=== PATIENT | female | born 1940 | race Caucasian/White ===

== ENCOUNTER 2018-04-22 16:36 | Emergency (ER) | payer MEDICARE, OTHER, SELFPAY ==
[~2018-04-22] VITALS: Ht 154.9 cm; Wt 52.0 kg
[2018-04-22] MEDS ORDERED: RIVA15TA PO (16:56)
[2018-04-22] MEDS ORDERED: CARDIA PO (16:56)
[2018-04-22] MEDS ORDERED: DILTIAZEM 5 MG/ML, 5ML IVPush ONE (17:00)
--- NOTE | 2018-04-22 17:03 | NUR ---
CYNTHIA RN: PT ARRIVES TO ED FROM CODE 250 IN ED PARKING LOT, AFTER PT HAD A WITNESSED FALL. PT HIT HER HEAD AND HAS A LACERATION ON RIGHT SIDE OF FOREHEAD AND HAS A BLOODY NOSE WITH CREPITUS FELT TO THE NOSE. PT DOES NOT HAVE ANY VISIBLE HEMATOMAS AT THIS TIME. PT IS ON BLOOD THINNERS (XARELTO). PT REPORTS SHE DID NOT HAVE LOC. PT IS A/O X4. PTS NEURO IS INTACT AND SENSATION WELL IN LOWER EXTREMITIES. PT CONNECTED TO ALL MONITOS AND PT IN AFIB AT THIS TIME. NOTIFIED. PT TO HAVE SCANS AT THIS TIME. AWAITING FURHTER ORDERS. REPORT TO LACY SUMNER RN.
--- NOTE | 2018-04-22 17:15 | NUR ---
CYNTHIA RN: PIV PLACED IN PT.
--- NOTE | 2018-04-22 17:17 | NUR ---
RECEIVED REPORT FROM YOUSUF FISHER, ASSUMING CARE OF PT AT THIS TIME. PT CURRENTLY BEING TAKEN TO CT. NOTED PT IN AFIB, PT UNABLE TO TELL THIS RN IF SHE IS ALWAYS IN AFIB. BILATERAL HIP PAIN, LAC TO RIGHT SIDE FACE AND HAS NOSE BLEED. LABS COLLECTED, PT TO BE MEDICATED WHEN BACK FROM IMAGING. BELONGINGS GIVEN TO SECURITY, INCLUDING PURSE AND RASHAAD EARINGS, PER PT REQUEST.
[2018-04-22 17:18] LABS: BASOPHILS # (AUTO) 0.05 x10^3/uL (0-0.1); BASOPHILS % (AUTO) 1 % (0-1); EOSINOPHILS # (AUTO) 0.24 x10^3/uL (0-0.4); EOSINOPHILS % (AUTO) 4 % (1-7); LYMPHOCYTES # (AUTO) 1.84 x10^3/uL (1-3.4); LYMPHOCYTES % (AUTO) 30 % (22-44); MD NO; MEAN CORPUSCULAR HEMOGLOBIN 31.2 pg (27.0-34.8); MEAN CORPUSCULAR HGB CONC 32.5 g/dL (32.4-35.8); MEAN CORPUSCULAR VOLUME 96.1 fL (80-100); MEAN PLATELET VOLUME 8.1 fL (7.4-10.4); MONOCYTES # (AUTO) 0.67 x10^3/uL (0.2-0.8); MONOCYTES % (AUTO) 11 % (2-9); NEUTROPHILS # (AUTO) 3.38 x10^3/uL (1.8-6.8); NEUTROPHILS % (AUTO) 55 % (42-75); PLATELET COUNT 272 x10^3/uL (130-400); RED BLOOD COUNT 4.06 x10^6/uL (3.82-5.3); RED CELL DISTRIBUTION WIDTH 14.8 % (9.6-15.2)
[2018-04-22 17:22] LABS: INTERNATIONAL NORMALIZED RATIO 1.14 (0.93-1.1)
[2018-04-22 17:24] LABS: ALBUMIN 3.5 g/dL (3.4-5.0); ANION GAP 9 mmol/L (5-15); CALCIUM 8.9 mg/dL (8.5-10.1); CHLORIDE 108 mmol/L (98-107); CREATININE 1.43 mg/dL (0.55-1.02)
--- NOTE | 2018-04-22 17:28 | NUR ---
delay. waiting for CT C-Spine results before Xray.
[2018-04-22] MEDS ORDERED: DILTIAZEM 5 MG/ML, 5ML ONE (17:34)
--- NOTE | 2018-04-22 17:46 | NUR ---
PT MEDICATED TO BRING RATE DOWN AFTER RETURNING FROM CT. HR ORIGINALLY 130S-150S NOW LOWERING TO 100S-120S. PT FOUND TO BE HTN WELL. AWAITING RESULTS AT [facility] TIME AND RAD IMAGING. CALL LIGHT WITHIN REACH.
--- NOTE | 2018-04-22 17:47 | NUR ---
No CT results to do Xray.
[2018-04-22] MEDS ORDERED: LIDOCAINE-MPF 1%, 5ML ONE (18:10)
[2018-04-22] MEDS ORDERED: LIDOCAINE 1%, 10ML INFIL ONE (18:30)
--- NOTE | 2018-04-22 18:45 | NUR ---
TECH ASSISTING PT TO RESTROOM. PA TO BEDSIDE TO NUMB LAC.
--- NOTE | 2018-04-22 19:02 | NUR ---
PT AMB WELL TO RESTROOM, NOW BACK IN BED, WOUND GETTING CLEANED NOW
[2018-04-22 19:27] VITALS: BP 163/93
[2018-04-22] MEDS ORDERED: BACITRACIN ZINC OINT 500U/GM, 0.9 GM ONE (19:29)
--- NOTE | 2018-04-26 02:16 | NUR ---
SIGNED CONSENT FOR RAKESH OBTAINED FROM [facility]. REQUESTED RECORDS FAXED TO [facility].
== END 2018-04-22 19:57 | disposition home or self-care (01) ==
LOC: ED 19:51
DX: S02.2XXA Fracture of nasal bones, initial encounter for closed fracture (principal); S01.111A Laceration without foreign body of right eyelid and periocular area, initial encounter; G89.11 Acute pain due to trauma; M25.552 Pain in left hip; N28.9 Disorder of kidney and ureter, unspecified; I48.2 Chronic atrial fibrillation; E04.1 Nontoxic single thyroid nodule; W18.30XA Fall on same level, unspecified, initial encounter; Y93.89 Activity, other specified; Y92.481 Parking lot as the place of occurrence of the external cause; Y99.8 Other external cause status
CPT/HCPCS: 12052; 36415; 70450; 70486; 72125; 80048; 82040; 85025; 85610; 93005; 96374